=== PATIENT | female | born 1960 | race Caucasian/White ===

== ENCOUNTER 2018-11-09 09:27 | Day surgery (SDC) | payer BC ==
[~2018-11-09 09:27] MED LIST: ACETAMINOPHEN 1,000 MG/100 ML BTL IVPB ONE
[2018-11-09] MEDS ORDERED: PROPOFOL 10 MG/ML VIAL IV ONE (09:28)
[2018-11-09] MEDS ORDERED: KETOROLAC 30 MG/ML VIAL IVP ONE (09:28)
[2018-11-09] MEDS ORDERED: LIDOCAINE 2% MDV (20MG/ML) 20ML VIAL IV ONE (09:28)
[2018-11-09] MEDS ORDERED: RINGERS SOLUTION,LACTATED 1,000 ML IV ONE (09:57)
[2018-11-09] MEDS ORDERED: BUPIVACAINE 0.25% W/EPI MPF 30ML VIAL SQ ONE (11:37)
--- NOTE | 2018-11-10 08:50 | Operative Note ---
DATE OF SURGERY: 11/09/2018 PREOPERATIVE DIAGNOSES: 1. Left arm mass x3. 2. Right arm mass x3. POSTOPERATIVE DIAGNOSES: 1. Left arm mass x3. 2. Right arm mass x3. OPERATION: Excision of bilateral arm masses x6; 3 on the left measured all 3 cm in the subcutaneous, and 3 on the right measured all 3 cm in the subcutaneous. SURGEON: Angel Barnes D.O. REFERRING PHYSICIAN: Estelita Ruiz, Nurse Practitioner ANESTHESIA: General. PROCEDURE: The patient is a 58-year-old female who was brought to the operating room and placed in the supine position. General anesthesia was administered per the Department of Anesthesia. The patient's arm was prepped and draped in sterile fashion. Starting on the right, the area around each mass was anesthetized with a total of 5 mL with 0.25% Sensorcaine with epinephrine. An incision was made overlying what appeared to be the lipomas. These were all excised fully and passed off of the field. Each wound was closed with 4-0 Vicryl in an interrupted fashion. Steri-Strips were applied. Attention was now turned to the left side where an identical procedure was done. The patient had a total of 6 masses removed. The skin was closed with 4-0 Vicryl in all. Steri-Strips were applied. Final pathology pending. [facility]
== END 2018-11-09 12:27 | disposition home or self-care (01) ==
LOC: SUR 09:27
PROVIDERS: ATTEND Surgery
DX: D17.22 Benign lipomatous neoplasm of skin and subcutaneous tissue of left arm (principal); D17.21 Benign lipomatous neoplasm of skin and subcutaneous tissue of right arm
CPT/HCPCS: 11404 ×6; 00400; J1885; J7120